=== PATIENT | female | born 1970 | race Caucasian/White ===

== ENCOUNTER → 2018-12-26 | Outpatient (CLI) | payer BC ==
[2018-12-26 13:31] VITALS: BP 138/77; PULSE 74; RESP 16; TEMP 98.5; BMI 25.4
--- NOTE | 2018-12-26 22:01 | P.BASOAP ---
Subjective Progress Note Date: 12/26/18 Principal diagnosis: Reflux Patient known to our service from previous lap band placement. Patient believes her band was emptied several years ago. She does have worsening reflux lately despite that however. Also has pain and swelling at her port site occasionally. Sometimes report feels warm to the touch. Patient is having reflux. No nausea or vomiting. No fevers. sHe is due for iliac vein stent placement in January. She is interested in band removal. Objective - Vital Signs Vital signs: Vital Signs Temp 98.5 F 12/26/18 13:26 Pulse 74 12/26/18 13:26 Resp 16 12/26/18 13:26 BP 138/77 12/26/18 13:26 Pulse Ox Intake & Output 12/26/18 12/26/18 12/27/18 06:59 18:59 06:59 Weight 69.4 kg - Exam Abdomen: Soft, nontender, nondistended, Port site within normal limits Assessment/Plan (1) Reflux esophagitis Narrative/Plan: Patient with chronic reflux and pain at the port site. We'll plan upper endoscopy followed by lap band removal. Surgical risks reviewed in detail. Plan: Date: 12/26/18 Initial Weight: 104.326 kg Initial BMI: 38.2 Current Weight: 69.4 kg Current BMI: 25.4 Type of Surgery: Adjustable Gastric Banding Total Volume in Band: Previous Volume: Volume Removed: Volume Added: Band Size:
== END | disposition home or self-care (01) ==
LOC: BARWHC3 13:00
PROVIDERS: ATTEND Surgery
DX: K21.9 Gastro-esophageal reflux disease without esophagitis (principal); Z46.51 Encounter for fitting and adjustment of gastric lap band
CPT/HCPCS: 99211

== ENCOUNTER 2019-01-03 07:38 | Day surgery (SDC) | payer BC ==
[2019-01-01 11:02] VITALS: BMI 25.3
[2019-01-03] MEDS ORDERED: LACTATED RINGERS 1,000 ML IV SCH (07:40)
[2019-01-03] MEDS ORDERED: LIDOCAINE 1% 20 ML VIAL (10MG/ML) FOR IV START INTRADERMA PRN (07:40)
--- NOTE | 2019-01-03 07:59 | P.GSHP ---
History of Present Illness H&P Date: 01/03/19 Chief Complaint: GERD Patient here today for upper endoscopy. Patient has had complaints of intermittent vomiting and reflux. Lap band placed years ago. He is interested in possible band removal. Also complaining of pain at her port site. Past Medical History Past Medical History: Diabetes Mellitus, GERD/Reflux, Hypertension Additional Past Medical History / Comment(s): DIABETES (DIET CONTROLLED), PAST HX OF HTN (NO MEDS NOW), STATES NARROWING IN ILIAC VEIN AND WILL BE GETTING A STENT., GRINDS TEETH-WEARS MOUTH GUARD., PT HAS LAP BAND-STATES NO FLUID. History of Any Multi-Drug Resistant Organisms: None Reported Past Surgical History: Bariatric Surgery, Cholecystectomy Additional Past Surgical History / Comment(s): lap band surgery 2006 Past Anesthesia/Blood Transfusion Reactions: No Reported Reaction, Family History of Problems w/ Anesthesia, Motion Sickness Additional Past Anesthesia/Blood Transfusion Reaction / Comment(s): UNSURE OF FAMILY PROBLEMS-THINKS DIFFICULTY WAKING UP., PATIENT DENIES MALIGNANT HYPERTHERMIA. Past Psychological History: No Psychological Hx Reported Smoking Status: Former smoker Past Alcohol Use History: None Reported Additional Past Alcohol Use History / Comment(s): quit smoking 15 years ago (2003), Started smoking age 19, smoked 1/2 ppd Past Drug Use History: None Reported - Past Family History Father Family Medical History: Cancer Additional Family Medical History / Comment(s): pancreatic cancer Sister(s) Family Medical History: Cancer Additional Family Medical History / Comment(s): breast cancer Medications and Allergies Home Medications Medication Instructions Recorded Confirmed Type Progesterone, Micronized 100 mg PO HS 12/26/18 01/03/19 History [Progesterone] Adreset Supplement 800 mg PO DAILY 01/01/19 01/03/19 History Cholecalciferol (Vitamin D3) 5,000 unit PO DAILY 01/01/19 01/03/19 History [Vitamin D3] Collagen 360 mg PO DAILY 01/01/19 01/03/19 History Ibuprofen [Advil] 400 mg PO ONCE PRN 01/01/19 01/01/19 History Magnesium 250 mg PO DAILY 01/01/19 01/03/19 History Multivitamins, Thera [Multivitamin 1 tab PO DAILY 01/01/19 01/03/19 History (formulary)] S-Adenosylmethionine Sul Tosyl 200 mg PO DAILY 01/01/19 01/03/19 History [Case-E] Ubidecarenone [Co Q-10] 300 mg PO DAILY 01/01/19 01/03/19 History Allergies Allergy/AdvReac Type Severity Reaction Status Date / Time No Known Allergies Allergy Verified 01/03/19 07:54 Surgical - Exam Physical exam: General: Well-developed, well-nourished HEENT: Normocephalic, sclerae nonicteric Abdomen: Nontender, nondistended Extremities: No edema Neuro: Alert and oriented Assessment and Plan (1) GERD (gastroesophageal reflux disease) Narrative/Plan: Will proceed with upper endoscopy at this time. We'll plan band removal in the near future. Current Visit: Yes Status: Acute Code(s): K21.9 - GASTRO-ESOPHAGEAL REFLUX DISEASE WITHOUT ESOPHAGITIS SNOMED Code(s): 919148039
[2019-01-03 08:07] VITALS: TEMP 98.2
[2019-01-03 08:08] LABS: Glucose,Whole Blood 90 mg/dL (75-99)
[2019-01-03] MEDS ORDERED: LIDOCAINE 1% INJ 10MG/ML (20 ML MDV) ONE (08:12)
[2019-01-03] MEDS ORDERED: PROPOFOL 10 MG/ML 20 ML VIAL IV ONE (08:12)
--- NOTE | 2019-01-03 08:20 | P.PCN ---
Date of Procedure: 01/03/19 Procedure(s) Performed: Preoperative Dx: GERD, vomiting Postoperative Dx: Mild gastritis, normal appearing LAP-BAND Procedure: EGD with Bx Anesthesia: Sedation Endoscopist: Dr. Irizarry Specimens: Antrum Endoscopic Procedure: The patient was on the endoscopy table in the left decubitus position. The Olympus gastroscope was inserted into the oropharynx and passed under direct visualization to the region of the third portion of the duodenum. From that point the scope was slowly withdrawn inspecting all s urfaces carefully. There were no neoplastic inflammatory or polypoid lesions throughout the duodenum. The pylorus was widely patent. The stomach was carefully inspected. There was minimal gastritis present. A biopsy of the antrum took place to rule out H. pylori. Retroflexion revealed a normal band plication. No hiatal hernia was seen. No evidence of erosion or prolapse. The esophagus was then carefully examined. There were no neoplastic inflammatory or polypoid lesions throughout the visualized esophagus. The patient was then taken to the recovery room in stable condition per anesthesia guidelines. Recommendations: We'll proceed with lap band removal next week.
[2019-01-03 09:10] LABS: Basophils % (A) 1 %; Eosinophils # (A) 0.3 k/uL (0-0.7); Eosinophils % (A) 5 %; HCT 38.2 % (34.0-46.0); HGB 12.9 gm/dL (11.4-16.0); Lymphocytes # (A) 1.6 k/uL (1.0-4.8); Lymphocytes % (A) 34 %; MCHC 33.7 g/dL (31.0-37.0); MCV 91.8 fL (80.0-100.0); Mean Platelet Volume 6.3; Monocytes # (A) 0.2 k/uL (0-1.0); Monocytes % (A) 5 %; Neutrophils # (A) 2.5 k/uL (1.3-7.7); Neutrophils % (A) 53 %; Platelet Count 168 k/uL (150-450); RBC 4.16 m/uL (3.80-5.40); RDW 12.9 % (11.5-15.5); WBC 4.7 k/uL (3.8-10.6)
[2019-01-03 09:14] LABS: ALT 16 U/L (9-52); AST 56 U/L (14-36); African American GFR (CKD) >90 (>60 ml/min/1.73 sqM); Albumin 4.7 g/dL (3.5-5.0); Alkaline Phosphatase 59 U/L (38-126); Anion Gap 10 mmol/L; Blood Urea Nitrogen 12 mg/dL (7-17); Calcium 9.3 mg/dL (8.4-10.2); Carbon Dioxide 26 mmol/L (22-30); Chloride 107 mmol/L (98-107); Glucose 90 mg/dL (74-99); Sodium 143 mmol/L (137-145)
[2019-01-03 09:20] VITALS: BP 114/66; PULSE 71; RESP 18
== END 2019-01-03 09:20 | disposition home or self-care (01) ==
LOC: ORWHC2ENDO 07:38
PROVIDERS: ATTEND Surgery
DX: K29.50 Unspecified chronic gastritis without bleeding (principal); K21.9 Gastro-esophageal reflux disease without esophagitis; K95.09 Other complications of gastric band procedure; I10 Essential (primary) hypertension; E11.9 Type 2 diabetes mellitus without complications; I87.1 Compression of vein; Z79.1 Long term (current) use of non-steroidal anti-inflammatories (NSAID); Z79.899 Other long term (current) drug therapy; Z87.891 Personal history of nicotine dependence; Z98.84 Bariatric surgery status; Z90.49 Acquired absence of other specified parts of digestive tract; Z80.0 Family history of malignant neoplasm of digestive organs; Z80.3 Family history of malignant neoplasm of breast
CPT/HCPCS: 81025; 88305; 80053; 85025; 43239; J2001; J2704

== ENCOUNTER → 2019-01-12 | Day surgery (SDC) | payer BC ==
[2019-01-10 15:00] VITALS: BMI 25.3
[~2019-01-12] MED LIST: BUPIVACAINE (PF) 0.25% 30 ML VIAL SQ ONE; DEXAMETHASONE SOD PHOSPHATE 10 MG/ML 1 ML VIAL IV ONE; GLYCOPYRROLATE 0.2 MG/ML 2 ML VIAL ONE; KETOROLAC 30 MG/ML 1 ML VIAL IVP ONE; LACTATED RINGERS 1,000 ML IV ONE; LACTATED RINGERS 1,000 ML IV SCH; LIDOCAINE 1% 20 ML VIAL (10MG/ML) FOR IV START INTRADERMA ONE; LIDOCAINE 1% INJ 10MG/ML (20 ML MDV) ONE; MIDAZOLAM 2 MG/2 ML VIAL IV PRN; MIDAZOLAM 2 MG/2 ML VIAL ONE; NALOXONE 0.4 MG/ML 1 ML VIAL IV PRN; NEOSTIGMINE 1 MG/ML 10 ML VIAL ONE; ONDANSETRON 4 MG/2 ML VIAL IVP ONE; PROPOFOL 10 MG/ML 20 ML VIAL IV ONE; ROCURONIUM BROMIDE 10 MG/ML 10 ML VIAL IV ONE; SCOPOLAMINE 1.5MG/72HR PATCH TRANSDERM ONE; SODIUM CHLORIDE 0.9% 50 ML with ceFAZolin 2,000 MG IV ONE; diphenhydrAMINE 50 MG/ML 1 ML VIAL IVP ONE; fentaNYL (PF) 50 MCG/ML 2 ML AMP ONE
--- NOTE | 2019-01-12 09:39 | P.GSHP ---
History of Present Illness H&P Date: 01/12/19 Chief Complaint: GERD, intractable vomiting Patient here today for elective lap band removal. Patient has had complaints of chronic reflux and intermittent vomiting. Also having pain at her port site. Recent endoscopy normal. Past Medical History Past Medical History: Diabetes Mellitus, GERD/Reflux, Hypertension Additional Past Medical History / Comment(s): diabetes (diet controlled) past hx of htn (no current meds, states narrowing of iliac vein- will be having a stent placed., grinds teeth- wears mouth guard., has lap band. History of Any Multi-Drug Resistant Organisms: None Reported Past Surgical History: Bariatric Surgery, Cholecystectomy Additional Past Surgical History / Comment(s): lap band surgery 2006 Past Anesthesia/Blood Transfusion Reactions: No Reported Reaction, Motion Sickness Additional Past Anesthesia/Blood Transfusion Reaction / Comment(s): UNSURE OF FAMILY PROBLEMS-THINKS DIFFICULTY WAKING UP., PATIENT DENIES MALIGNANT HYPERTHERMIA. Past Psychological History: No Psychological Hx Reported Smoking Status: Former smoker Past Alcohol Use History: None Reported Additional Past Alcohol Use History / Comment(s): quit smoking 15 years ago Past Drug Use History: None Reported - Past Family History Father Family Medical History: Cancer Additional Family Medical History / Comment(s): pancreatic cancer Sister(s) Family Medical History: Cancer Additional Family Medical History / Comment(s): breast cancer Mother Family Medical History: No Reported History Medications and Allergies Home Medications Medication Instructions Recorded Confirmed Type Progesterone, Micronized 100 mg PO HS 12/26/18 01/12/19 History [Progesterone] Adreset Supplement 800 mg PO DAILY 01/01/19 01/12/19 History Cholecalciferol (Vitamin D3) 5,000 unit PO DAILY 01/01/19 01/12/19 History [Vitamin D3] Collagen 360 mg PO DAILY 01/01/19 01/12/19 History Ibuprofen [Advil] 400 mg PO ONCE PRN 01/01/19 01/12/19 History Magnesium 250 mg PO DAILY 01/01/19 01/12/19 History Multivitamins, Thera [Multivitamin 1 tab PO DAILY 01/01/19 01/12/19 History (formulary)] S-Adenosylmethionine Sul Tosyl 200 mg PO DAILY 01/01/19 01/12/19 History [Case-E] Ubidecarenone [Co Q-10] 300 mg PO DAILY 01/01/19 01/12/19 History Allergies Allergy/AdvReac Type Severity Reaction Status Date / Time No Known Allergies Allergy Verified 01/12/19 09:27 Surgical - Exam Vital Signs Temp Pulse Resp BP Pulse Ox 97.7 F 65 16 130/85 100 01/12/19 09:25 01/12/19 09:25 01/12/19 09:25 01/12/19 09:25 01/12/19 09:25 Physical exam: General: Well-developed, well-nourished HEENT: Normocephalic, sclerae nonicteric Abdomen: Nontender, nondistended Extremities: No edema Neuro: Alert and oriented Assessment and Plan (1) GERD (gastroesophageal reflux disease) Narrative/Plan: Will proceed with laparoscopic lap band removal at this time. Risks of bleeding, infection, bowel and gastric injury, conversion to an open procedure discussed. She understands and wishes to proceed. Current Visit: No Status: Acute Code(s): K21.9 - GASTRO-ESOPHAGEAL REFLUX DISEASE WITHOUT ESOPHAGITIS SNOMED Code(s): 147535579
[2019-01-12 09:59] LABS: Glucose,Whole Blood 84 mg/dL (75-99)
--- NOTE | 2019-01-12 11:31 | P.OP ---
Date of Procedure: 01/12/19 Procedure(s) Performed: PREOPERATIVE DIAGNOSIS: Band intolerance/abdominal pain POSTOPERATIVE DIAGNOSIS: Same PROCEDURE: Laparoscopic lap band removal SURGEON: Edie EBL: Minimal ANESTHESIA: General COMPLICATIONS: None OPERATIVE PROCEDURE: The patient was brought and placed on the operating room table in the supine position. The patient was placed under general anesthesia at that time. The patient was then placed in lithotomy. The abdomen was prepped and draped in the usual sterile fashion. The previous port incision was localized and then incised using a scalpel. The port was easily excised using electrocautery. Entrance into the peritoneal cavity occurred using a 5 mm optical trocar through the old trocar entrance site. Insufflation took place to 15 mmHg. A right subxiphoid 5 mm trocar was placed. This was then removed and the medium Joshua hook was used to elevate the left lobe of the liver anteriorly. An additional 5 mm trocar was placed under direct visualization in the left lateral upper quadrant. The original 5 mm trocar was switched to a 15 mm trocar. A additional 5 mm trocar was placed in the right upper quadrant under direct dilatation. There were adhesions to the band in the buccal that were lysed using electrocautery. The band was then cut using the laparoscopic silvano. The band was then removed easily in 2 portions through the 15 mm trocar site. The stomach itself was inspected and revealed no evidence of erosion or prolapse. The trochars were removed. The fascia at the 15 mm site was closed using a [id number] 0 Vicryl stitch. The subcutaneous tissues at the port site was closed using a 3-0 Vicryl suture. The skin at all 4 incision sites were closed using 4-0 Monocryl sutures. Skin glue was then applied. DISPOSITION: Stable to recovery room
[2019-01-12 11:36] VITALS: TEMP 96.8
[2019-01-12] MEDS: HYDROmorphone 0.5 MG/0.5 ML SYRINGE IVP PRN ×2 (11:38→11:43)
[2019-01-12 13:49] VITALS: BP 124/82; PULSE 73; RESP 18
== END ==
LOC: OR 09:13
PROVIDERS: ATTEND Surgery
DX: T85.848A Pain due to other internal prosthetic devices, implants and grafts, initial encounter (principal); K21.9 Gastro-esophageal reflux disease without esophagitis; R11.10 Vomiting, unspecified; E11.9 Type 2 diabetes mellitus without complications; I87.1 Compression of vein; Z90.49 Acquired absence of other specified parts of digestive tract; Z87.891 Personal history of nicotine dependence; Z80.0 Family history of malignant neoplasm of digestive organs; Z80.3 Family history of malignant neoplasm of breast; Z79.890 Hormone replacement therapy
CPT/HCPCS: 43774; J2250; J1200; J1100; J2710; J2405; J0690; J2001; J3010; J1885; J2704; J1170